=== PATIENT | male | born 1980 | race Caucasian/White ===

== ENCOUNTER → 2018-10-11 08:21 | Outpatient (CLI) | payer OTHER, SELFPAY ==
--- NOTE | 2018-10-11 | DI.MRI.S_ITS ---
PROCEDURE: MR WRIST RT W CON INDICATIONS: pain right wrist TECHNIQUE: After the administration of 3-4 mL of dilute intra-articular Gadolinium contrast into the radiocarpal compartment, coronal T1 spin echo with fat saturation and T2 fast spin echo with fat saturation, axial T1 spin echo and T2 fast spin echo with fat saturation, sagittal T1 spin echo with and without fat saturation through the wrist. COMPARISON: None. FINDINGS: Image quality: Excellent. Bones and cartilage: The carpal bones are normally aligned. No bone marrow contusions or fractures. No evidence for avascular necrosis. Overlying cartilage surfaces appear normal. Carpal ligaments: There is perforation involving the volar and central portion of scapholunate ligament with gadolinium extravasation into the mid-carpal compartment. The lunotriquetral ligament is intact. The radioscaphocapitate and radiolunotriquetral ligaments appear intact. The arcuate ligament and short radiolunate ligament also appear normal. The dorsal intercarpal and radiotriquetral ligaments appear intact. On sagittal images, the pisohamate ligament appears intact. Triangular fibrocartilage complex: Signal abnormality is seen involving radial aspect of triangular fibrocartilage complex with focal perforation at its radial insertion. There is gadolinium extravasation into the distal radioulnar joint. The adjacent meniscal homolog appears normal. The ulnar collateral ligament appears intact. The extensor carpi ulnaris tendon is normal in location and morphology. Tendons and soft tissues: The carpal tunnel structures appear normal, including the median nerve. The ulnar nerve appears normal within Guyon's canal. All six extensor tendon compartments demonstrate normal morphology, without pathologic tendon sheath fluid. No soft tissue ganglion cysts. IMPRESSION: 1. Tear involving the volar and central portion of scapholunate ligament with contrast extravasating into the mid carpal compartment. Lunotriquetral ligament is intact. 2. There is tear of regular fibrocartilage near its radial insertion with contrast extending to the distal radioulnar joint. 3. Wrist tendons are grossly intact. No marrow signal abnormality. No fracture or dislocation. Dictated by: Ismael Chadwick M.D. on 10/11/2018 at 17:06 Approved by: Ismael Chadwick M.D. on 10/11/2018 at 17:11
--- NOTE | 2018-10-11 | DI.RAD.S_ITS ---
PROCEDURE: FL WRIST INJECTION MR/CT RT INDICATIONS: pain right wrist TECHNIQUE: After informed consent had been obtained, the wrist was examined fluoroscopically, and a site chosen for injection of the radiocarpal compartment from a dorsal approach. Skin was prepped and draped in a sterile fashion and 1% lidocaine infiltrated from the skin down to the articular surface. A hypodermic needle was then introduced into the articular space and a modest amount of contrast medium was instilled confirming intra-articular needle tip placement. This was followed by approximately 3 mL of a dilute gadolinium solution. Needle was removed and dressing was applied. The patient experienced no complications throughout the procedure and left the fluoroscopic suite in no apparent distress. FINDINGS: A single fluoroscopic spot image demonstrates intra-articular location to injected iodinated contrast. IMPRESSION: Successful fluoroscopic-guided administration of dilute Gadolinium solution for right wrist MR arthrogram. Dictated by: Alec Sequeira M.D. on 10/11/2018 at 9:47 Approved by: Alec Sequeira M.D. on 10/11/2018 at 9:47
== END ==
PROVIDERS: Visit Provider Orthopaedic Surgery
DX: M25.531 Pain in right wrist (principal)
CPT/HCPCS: 20605; 73222; 77002

== ENCOUNTER → 2019-01-02 10:38 | Outpatient (CLI) | payer OTHER, SELFPAY ==
--- NOTE | 2019-01-02 | DI.RAD.S_ITS ---
PROCEDURE: FL HIP INJECTION MR/CT RT INDICATIONS: RIGHT HIP JOINT DISORDERS TECHNIQUE: The indications, alternatives, benefits, risks, and complications of the procedure were explained to the patient. Written informed consent was obtained and placed in the chart. The hip was examined fluoroscopically with the legs fixed in slight internal rotation, and a site for needle placement chosen for entry into the hip joint from an anterior approach. Care was taken to locate the common femoral artery and vein beforehand. The skin was prepped and draped in a sterile fashion, and 1% Lidocaine infiltrated from skin down to joint capsule. A spinal needle was inserted into the right hip joint, and a small amount of iodinated contrast media injected to confirm intra-articular placement of the needle tip. This was followed by approximately 10 mL dilute solution of a gadolinium containing MR contrast agent. The needle was removed and a dressing was applied. The patient was given postprocedural instructions and sent to the MR suite for imaging. FINDINGS: A single fluoroscopic spot image demonstrates intra-articular location of injected iodinated contrast. IMPRESSION: Successful fluoroscopically guided administration of dilute Gadolinium solution into the right hip joint for MR arthrogram. Dictated by: Andi Escobar M.D. on 01/02/2019 at 13:23 Approved by: Andi Escobar M.D. on 01/02/2019 at 13:24
--- NOTE | 2019-01-02 | DI.MRI.S_ITS ---
PROCEDURE: MR HIP RT W CON INDICATIONS: RIGHT HIP JOINT PAIN TECHNIQUE: After the administration of 10 mL of dilute intra-articular Gadolinium contrast, coronal STIR of the bony pelvis; coronal and oblique axial T1 spin echo with fat saturation, axial T2 fast spin echo with fat saturation, sagittal T1 spin echo with and without fat saturation of the involved hip. COMPARISON: None. FINDINGS: Image quality: Excellent. Bones and joints: Bone marrow of the pelvic ring and proximal femurs show normal signal throughout. No intraosseous lesions or fractures. No avascular necrosis of the femoral head. The visualized lower lumbar spine appears normally aligned. The ligamental, neck, and labral plicae appear normal where visualized. Tendons and ligaments: The gluteus medius and minimus tendons appear intact, without associated muscle atrophy. The nearby proximal iliotibial band also appears intact. The iliopsoas tendon appears intact, without adjacent bursal fluid collections or evidence for impingement syndrome. Minimal thickening of the hamstring origin. This finding technically age unknown The straight and reflected heads of the rectus femoris muscle origin appear intact, as well as the conjoint tendon. The ligamentum teres appears intact where visualized. Labrum and cartilage: Full-thickness signal change involving the base of the anterosuperior labrum. There is also adjacent partial thickness chondral loss and degenerative changes in the acetabulum in keeping with labral tear. There is also gadolinium signal intensity traversing the full thickness of the base of the posterior labrum, which is suspicious for posterior labral tear No paralabral cysts. A paralabral fluid collection on image 8 series 5 with gadolinium signal intensity is probably injection related. The alpha angle of the femur is increased measuring approximately 58?. Soft tissues: Visualized muscles demonstrate normal bulk and internal signal. Quadratus femoris muscle demonstrates no internal edema to suggest ischiofemoral impingement. The proximal sciatic neurovascular bundle appears normal adjacent to the hamstring tendons. No free pelvic fluid. Bladder wall thickness is normal. Genitourinary structures and bowel loops appear normal where visualized. IMPRESSION: Anterosuperior labral tear with adjacent partial thickness chondral loss and acetabular degenerative changes. Distal linear gadolinium signal intensity traverses the full thickness of the base of the posterior labrum, suspicious for posterior labral tear. Decreased femoral head-neck step-off which can be seen in setting of femoral acetabular impingement syndrome. Please correlate clinically. Minimal age indeterminate hamstring origin tendinopathy. Dictated by: Branden Fox M.D. on 01/02/2019 at 13:15 Approved by: Branden Fox M.D. on 01/02/2019 at 13:24
== END ==
PROVIDERS: Visit Provider Orthopaedic Surgery
DX: M25.551 Pain in right hip (principal); S43.431A Superior glenoid labrum lesion of right shoulder, initial encounter
CPT/HCPCS: 27093; 73722; 77002

== ENCOUNTER → 2024-02-29 08:03 | Outpatient (CLI) | payer OTHER, SELFPAY ==
--- NOTE | 2024-02-29 08:07 | DI.MRI.S_ITS ---
PROCEDURE: MR LOWER LEG RT WO CON INDICATIONS: PAIN IN RIGHT LOWER LEG TECHNIQUE: Noncontrast coronal T1 spin echo and STIR; sagittal T1 spin echo with fat saturation and STIR; axial T1 spin echo and T2 fast spin echo with fat saturation through the right lower leg. COMPARISON: None. FINDINGS: Image quality: Excellent. Bones: The visualized bone marrow demonstrates normal signal on all sequences. The overlying cortex appears intact. No acute fractures lines or intra-osseous lesions. Postsurgical changes from left anterior cruciate ligament reconstruction are incidentally noted on large [id number] coronal images. Soft tissues: The scanned muscles demonstrate normal overall bulk and internal signal. Internal structures of the knee and ankle are not well evaluated on this exam. No soft tissue masses are present. Varicose veins are noted posterior to the left knee. IMPRESSION: No acute abnormality identified in the right lower leg. Approved by: Bry Barton M.D. on 02/29/2024 at 10:41
== END ==
LOC: MRI 08:05
PROVIDERS: Referring Provider Student in an Organized Health Care Education/Training Program; Visit Provider Student in an Organized Health Care Education/Training Program
DX: M79.661 Pain in right lower leg (principal)
CPT/HCPCS: 73718